=== PATIENT | female | born 1970 | race Two or more races ===

== ENCOUNTER 2020-05-14 05:30 | Day surgery (SDC) | payer OTHER | END 2020-05-14 12:00 | disposition home or self-care (01) | LOC: AMB-ENDOS 05:30 → ADM 13:15 → AMB-ENDOS 13:15 | PROVIDERS: ATTEND Colon & Rectal Surgery | DX: K29.60 Other gastritis without bleeding (principal); K44.9 Diaphragmatic hernia without obstruction or gangrene; K62.89 Other specified diseases of anus and rectum; K64.1 Second degree hemorrhoids; Z20.828 Contact with and (suspected) exposure to other viral communicable diseases ==